=== PATIENT | female | born 1980 | race African-American/Black ===

== ENCOUNTER 2017-05-12 11:07 | Emergency (ER) | payer SELFPAY ==
--- NOTE | 2017-05-12 12:49 | ER Document Report ---
ED Medical Screen (RME) - General Chief Complaint: Fainting Stated Complaint: BACK PAIN Time Seen by Provider: 05/12/17 12:41 Mode of Arrival: Ambulatory Information source: Patient, [facility] Records TRAVEL OUTSIDE OF THE [place] IN LAST 30 DAYS: No - HPI Onset: Just prior to arrival Onset/Duration: Sudden Quality of pain: Dull Associated Symptoms: None Exacerbated by: Denies Relieved by: Denies Similar symptoms previously: No Recently seen / treated by doctor: No Notes: 05/12/17 12:47 Patient is a healthy 37-year-old female with no medical problems. Patient was standing at work today when she suddenly had a syncopal episode. Patient denies any injury from the syncopal episode. Patient is complaining of mild headache and low back pain. Patient states the low back pain preceded the syncope. The headache is been present since the syncope. No chest pain or shortness of breath. No recent illness. No nausea or vomiting. Patient does believe that she has a UTI. No fevers or chills. - Related Data Smoking: Non-smoker Allergies/Adverse Reactions: No Known Allergies Allergy (Verified 05/12/17 11:25) Past Medical History - General Information source: Patient, [facility] Records - Social History Frequency of alcohol use: None Drug Abuse: None Renal/ Medical History: Denies: Hx Peritoneal Dialysis Past Surgical History: Reports: Hx Section - x3, Hx Tubal Ligation - Immunizations Hx Diphtheria, Pertussis, Tetanus Vaccination: Yes Review of Systems - Review of Systems Constitutional: Other - Syncope Neurological/Psychological: Headaches -: Yes All other systems reviewed and negative Physical Exam - Vital signs Vitals: Temp Pulse Resp BP Pulse Ox 99.9 F 97 24 H 126/78 H 100 05/12/17 11:24 05/12/17 11:24 05/12/17 11:24 05/12/17 11:24 05/12/17 11:24 Interpretation: Normal - General General appearance: Appears well, Alert - HEENT Head: Normocephalic, Atraumatic Eyes: Normal Pupils: PERRL - Respiratory Respiratory status: No respiratory distress Chest status: Nontender Breath sounds: Normal Chest palpation: Normal - Cardiovascular Rhythm: Regular Heart sounds: Normal auscultation Murmur: No - Abdominal Inspection: Normal Distension: No distension Bowel sounds: Normal Tenderness: Nontender Organomegaly: No organomegaly - Back Back: Normal, Nontender - Extremities General upper extremity: Normal inspection, Nontender, Normal color, Normal ROM , Normal temperature General lower extremity: Normal inspection, Nontender, Normal color, Normal ROM , Normal temperature, Normal weight bearing. No: Nichole's sign - Neurological Neuro grossly intact: Yes Cognition: Normal Orientation: AAOx4 [place] Coma Scale Eye Opening: Spontaneous [place] Coma Scale Verbal: Oriented [place] Coma Scale Motor: Obeys Commands Don Coma Scale Total: 15 Speech: Normal Motor strength normal: LUE, RUE, LLE, RLE Sensory: Normal - Psychological Associated symptoms: Normal affect, Normal mood - Skin Skin Temperature: Warm Skin Moisture: Dry Skin Color: Normal Course - Re-evaluation Re-evalutation: 05/12/17 13:39 Emergency Department workup unremarkable with exception of the urine which demonstrates a UTI. Will place patient on antibiotics for this. Discussed need for primary care follow-up. - Vital Signs Vital signs: Temp Pulse Resp BP Pulse Ox 99.9 F 97 24 H 126/78 H 100 05/12/17 11:24 05/12/17 11:24 05/12/17 11:24 05/12/17 11:24 05/12/17 11:24 - Laboratory Result Diagrams: 05/12/17 12:55 05/12/17 12:55 Laboratory results interpreted by me: 05/12/17 05/12/17 05/12/17 12:55 12:55 12:55 RDW 15.6 H Plt Count 148 L Sodium 135.4 L Urine Blood SMALL H Urine Nitrite POSITIVE H Ur Leukocyte Esterase TRACE H - Diagnostic Test Radiology reviewed: Reports reviewed Radiology results interpreted by me: 05/12/17 13:39 CT head negative per radiologist. Chest x-ray negative per radiologist. Doctor's Discharge - Discharge Clinical Impression: UTI (urinary tract infection) Condition: Good Disposition: HOME, SELF-CARE Instructions: Urinary Tract Infection ([facility]) Additional Instructions: Increase fluids. Follow-up with your primary care doctor. Return to the emergency department if worse or for any other problems. Prescriptions: Sulfamethoxazole/Trimethoprim [Bactrim Ds Tablet] 1 each PO BID #14 tablet
[2017-05-12 13:19] LABS: APPEARANCE,URINE SLIGHTLY-CLOUDY; BILIRUBIN,URINE NEGATIVE (NEGATIVE); GLUCOSE, URINE NEGATIVE (NEGATIVE); KETONES,URINE NEGATIVE (NEGATIVE); LEUKOCYTE ESTERASE,URINE TRACE (NEGATIVE); NITRITE,URINE POSITIVE (NEGATIVE); PROTEIN,URINE NEGATIVE (NEGATIVE); URINE SPECIFIC GRAVITY 1.005; UROBILINOGEN,URINE NEGATIVE mg/dL (<2.0)
[2017-05-12 13:20] LABS: HEMATOCRIT 37.9 % (36.0-47.0); HEMOGLOBIN 12.5 g/dL (12.0-15.5); HGB HCT DIFFERENCE -0.4; MEAN CORPUSCULAR HEMOGLOBIN 29.8 pg (27.0-33.4); MEAN CORPUSCULAR HGB CONC 33.1 g/dL (32.0-36.0); MEAN CORPUSCULAR VOLUME 90 fl (80-97); RED BLOOD COUNT 4.21 10^6/uL (3.72-5.28); RED CELL DISTRIBUTION WIDTH 15.6 % (11.5-14.0); WHITE BLOOD COUNT 4.7 10^3/uL (4.0-10.5)
[2017-05-12 13:23] LABS: ALANINE AMINOTRANSFERASE 33 U/L (9-52); ALBUMIN 4.6 g/dL (3.5-5.0); ALKALINE PHOSPHATASE 69 U/L (38-126); ANION GAP 9 (5-19); ASPARTATE AMINO TRANSFERASE 22 U/L (14-36); BILIRUBIN,DIRECT 0.4 mg/dL (0.0-0.4); BILIRUBIN,TOTAL 0.7 mg/dL (0.2-1.3); BLOOD UREA NITROGEN 10 mg/dL (7-20); CALCIUM 9.6 mg/dL (8.4-10.2); CARBON DIOXIDE 23 mmol/L (22-30); CHLORIDE 103 mmol/L (98-107); CREATININE RESULT 0.73 mg/dL (0.52-1.25); GLUCOSE 87 mg/dL (75-110); SODIUM 135.4 mmol/L (137-145); TOTAL PROTEIN 7.9 g/dL (6.3-8.2)
--- NOTE | 2017-05-12 13:31 | RADIOLOGY REPORT (SQ) ---
EXAM DESCRIPTION: CT HEAD WITHOUT COMPLETED DATE/TIME: 05/12/2017 1:23 pm REASON FOR STUDY: syncope, headache COMPARISON: None. TECHNIQUE: Axial images acquired through the brain without intravenous contrast. Images reviewed wi th bone, brain and subdural windows. Images stored on PACS. All CT scanners at this facility use dose modulation, iterative reconstruction, and/or weight based d osing when appropriate to reduce radiation dose to as low as reasonably achievable ([facility]). [facility]: Dose Right [facility]: CareDose [facility]: Dose Right [facility]: Teradose 4D [facility]: [employer] RADIATION DOSE: Up-to-date CT equipment and radiation dose reduction techniques were employed. CTDIv ol: 64.6 mGy. DLP: 1163 mGy-cm. mGy. LIMITATIONS: None. FINDINGS: VENTRICLES: Normal size and contour. CEREBRUM: No masses. No hemorrhage. No midline shift. Normal fontana/white matter differentiation. N o evidence for acute infarction. CEREBELLUM: No masses. No hemorrhage. No alteration of density. No evidence for acute infarction. EXTRAAXIAL SPACES: No fluid collections. No masses. ORBITS AND GLOBE: No intra- or extraconal masses. Normal contour of globe without masses. CALVARIUM: No fracture. PARANASAL SINUSES: No fluid or mucosal thickening. SOFT TISSUES: No mass or hematoma. OTHER: No other significant finding. IMPRESSION: NORMAL BRAIN CT WITHOUT CONTRAST. TECHNICAL DOCUMENTATION: JOB ID: [id number] Quality ID # [id number]: Final reports with documentation of one or more dose reduction techniques (e.g., Au tomated exposure control, adjustment of the mA and/or kV according to patient size, use of iterative reconstruction technique) 2010 [employer]- All Rights Reserved
--- NOTE | 2017-05-12 13:34 | RADIOLOGY REPORT (SQ) ---
EXAM DESCRIPTION: CHEST SINGLE VIEW COMPLETED DATE/TIME: 05/12/2017 1:23 pm REASON FOR STUDY: syncope COMPARISON: 02/19/2014 EXAM PARAMETERS: NUMBER OF VIEWS: One view. TECHNIQUE: Single frontal radiographic view of the chest acquired. RADIATION DOSE: NA LIMITATIONS: None. FINDINGS: LUNGS AND PLEURA: No opacities, masses or pneumothorax. No pleural effusion. MEDIASTINUM AND HILAR STRUCTURES: No masses. Contour normal. HEART AND VASCULAR STRUCTURES: Heart normal in size. Normal vasculature. BONES: No acute findings. HARDWARE: None in the chest. OTHER: No other significant finding. IMPRESSION: NO ACUTE RADIOGRAPHIC FINDING IN THE CHEST. TECHNICAL DOCUMENTATION: JOB ID: [id number]
[2017-05-12] MEDS ORDERED: SULFAMETHOXAZOLE/TRIMETHOPRIM 800-160 MG TABLET PO ONE (13:39)
[2017-05-12 13:46] LABS: ANISOCYTOSIS SLIGHT; BASOPHILS % (MANUAL) 0 % (0-2); EOSINOPHILS % (MANUAL) 2 % (0-6); HYPOCHROMASIA SLIGHT; LYMPHOCYTES % (MANUAL) 4 % (13-45); PLATELET CLUMPS PRESENT; TOTAL CELLS COUNTED 100; TOXIC GRANULATION SLIGHT; TOXIC VACUOLATION PRESENT
[2017-05-12 13:48] VITALS: BP 117/73
--- NOTE | 2017-05-12 19:50 | EKG REPORT ---
SEVERITY:- BORDERLINE ECG - SINUS RHYTHM PROBABLE LEFT ATRIAL ABNORMALITY ST ELEV, PROBABLE NORMAL EARLY REPOL PATTERN : Confirmed by: Rafi Quiroz MD 12-May-2017 19:49:29
== END 2017-05-12 13:44 | disposition home or self-care (01) ==
LOC: ER 11:07
DX: N39.0 Urinary tract infection, site not specified (principal); R55 Syncope and collapse; R51 Headache; M54.5 Low back pain
CPT/HCPCS: 36415; 70450; 71010; 80053; 81001; 81025; 84484; 85025; 93005; 93010; 99284

== ENCOUNTER 2018-04-12 08:26 | Emergency (ER) | payer SELFPAY ==
[2018-04-12] MEDS ORDERED: BUPIVACAINE HCL 0.5%-EPI 1:200000 INJ/PF 30 ML VIAL INJ ONE (09:28)
--- NOTE | 2018-04-12 09:32 | ER Document Report ---
ED Oral Problem - General Chief Complaint: Toothache Stated Complaint: RIGHT SIDE OF FACE PAIN/SWELLING Time Seen by Provider: 04/12/18 08:58 Mode of Arrival: Ambulatory Information source: Patient Notes: Patient is a 38-year-old female who presents to the ER today for left lower tooth pain with some swelling that started yesterday. Patient denies any fevers or chills, she does not have a dentist follow-up with, she denies any discharge from the area. TRAVEL OUTSIDE OF THE [place] IN LAST 30 DAYS: No - Related Data Allergies/Adverse Reactions: No Known Allergies Allergy (Verified 04/12/18 08:27) Past Medical History - General Information source: Patient - Social History Smoking Status: Current Every Day Smoker Chew tobacco use (# tins/day): No Frequency of alcohol use: None Drug Abuse: None Family History: None, Reviewed & Not Pertinent Patient has suicidal ideation: No Patient has homicidal ideation: No Renal/ Medical History: Denies: Hx Peritoneal Dialysis Past Surgical History: Reports: Hx Section - x3, Hx Tubal Ligation - Immunizations Hx Diphtheria, Pertussis, Tetanus Vaccination: Yes Review of Systems - Review of Systems Constitutional: No symptoms reported EENT: See HPI Cardiovascular: No symptoms reported Respiratory: No symptoms reported Gastrointestinal: No symptoms reported Genitourinary: No symptoms reported Female Genitourinary: No symptoms reported Musculoskeletal: No symptoms reported Skin: No symptoms reported Hematologic/Lymphatic: No symptoms reported Neurological/Psychological: No symptoms reported Physical Exam - Vital signs Vitals: Temp Pulse Resp BP Pulse Ox 98.5 F 92 14 138/80 H 100 04/12/18 08:31 04/12/18 08:31 04/12/18 08:31 04/12/18 08:31 04/12/18 08:31 - Notes Notes: PHYSICAL EXAMINATION: GENERAL: Rocking back and forth in pain, but in no acute distress. HEAD: Atraumatic, normocephalic. EYES: Pupils equal round and reactive to light, extraocular movements intact, sclera anicteric, conjunctiva are normal. ENT: ear canals without erythema or foreign body, TMs pearly vee with good bony landmarks, nares patent, oropharynx clear without exudates. Moist mucous membranes. Tender to lower gumline around tooth #19, edema noted to the buccal space around this area and to the gumline, however no fluctuance or induration appreciated, no drainage NECK: Normal range of motion, supple without lymphadenopathy LUNGS: CTAB and equal. No wheezes rales or rhonchi. HEART: Regular rate and rhythm without murmurs EXTREMITIES: Normal range of motion, no pitting edema. No cyanosis. NEUROLOGICAL: Cranial nerves grossly intact. Normal sensory/motor exams. PSYCH: Normal mood, normal affect. SKIN: Warm, Dry, normal turgor, no rashes or lesions noted Course - Re-evaluation Re-evalutation: 04/12/18 10:41 Marcaine was utilized to perform a dental block to the area. Patient will be placed on amoxicillin. I did give for the [facility] dental information. - Vital Signs Vital signs: Temp Pulse Resp BP Pulse Ox 98.4 F 79 18 137/71 H 100 04/12/18 10:25 04/12/18 10:25 04/12/18 10:25 04/12/18 10:25 04/12/18 10:25 Discharge - Discharge Clinical Impression: Dental infection Condition: Stable Disposition: HOME, SELF-CARE Additional Instructions: Return immediately for any new or worsening symptoms. Follow up with dentist, call tomorrow to make followup appointment. Prescriptions: Amoxicillin 500 mg PO TID #30 capsule Hydrocodone/Acetaminophen [Fountain 5-325 mg Tablet] 1 tab PO Q4 PRN #15 tablet PRN Reason: Ibuprofen [Motrin 800 mg Tablet] 800 mg PO Q8H PRN #30 tab PRN Reason: Referrals: [facility] [Provider Group] - Follow up as needed
[2018-04-12 10:41] VITALS: BP 137/71
== END 2018-04-12 10:30 | disposition home or self-care (01) ==
LOC: ER 08:26
DX: K04.7 Periapical abscess without sinus (principal); F17.200 Nicotine dependence, unspecified, uncomplicated; Z98.51 Tubal ligation status
CPT/HCPCS: 99282; J3490

== ENCOUNTER 2018-08-03 02:38 | Emergency (ER) | payer SELFPAY ==
[2018-08-03] MEDS ORDERED: BENZONATATE 100 MG CAPSULE PO ONE (03:09)
--- NOTE | 2018-08-03 03:10 | ER Document Report ---
ED Respiratory Problem - General Chief Complaint: Breathing Difficulty Stated Complaint: DIZZINESS Time Seen by Provider: 08/03/18 03:04 Notes: Patient is a 38-year-old female that comes to the emergency department for chief complaint of cough and shortness of breath. She states that she keeps having episodes of coughing that making her feel out of breath. She states that if she lies flat this is worse or she takes a deep breath. She states she has coughed up some white sputum but also coughed up a little bit of blood earlier today causing her to be concerned and come to the emergency department. She denies current shortness of breath, denies fever, denies chest pain. She denies any daily medications or medical history. She smokes. She has had a tubal ligation. TRAVEL OUTSIDE OF THE [place] IN LAST 30 DAYS: No - Related Data Allergies/Adverse Reactions: No Known Allergies Allergy (Verified 04/12/18 08:27) Past Medical History - General Information source: Patient - Social History Smoking Status: Current Every Day Smoker Smoking Education Provided: Yes - <3 min Drug Abuse: None Lives with: Family Family History: None, Reviewed & Not Pertinent - Medical History Medical History: Negative Renal/ Medical History: Denies: Hx Peritoneal Dialysis Past Surgical History: Reports: Hx Section - x3, Hx Tubal Ligation - Immunizations Hx Diphtheria, Pertussis, Tetanus Vaccination: Yes Review of Systems - Review of Systems Constitutional: No symptoms reported EENT: No symptoms reported Cardiovascular: No symptoms reported Respiratory: See HPI Gastrointestinal: No symptoms reported Genitourinary: No symptoms reported Female Genitourinary: No symptoms reported Musculoskeletal: No symptoms reported Skin: No symptoms reported Hematologic/Lymphatic: No symptoms reported Neurological/Psychological: No symptoms reported Physical Exam - Vital signs Vitals: Temp Pulse Resp BP Pulse Ox 98.1 F 94 20 127/74 H 95 08/03/18 02:47 08/03/18 02:47 08/03/18 02:47 08/03/18 02:47 08/03/18 02:47 - Notes Notes: GENERAL: Alert, interacts well. No acute distress. HEAD: Normocephalic, atraumatic. EYES: Pupils equal, round, and reactive to light. Extraocular movements intact. ENT: Oral mucosa moist, tongue midline. Unremarkable oral pharyngeal exam. NECK: Full range of motion. Supple. Trachea midline. LUNGS: Clear to auscultation bilaterally except for a few coarse breath sounds, no wheezes, rales, or rhonchi. No respiratory distress. Occasional nonproductive coughing episodes. HEART: Regular rate and rhythm. No murmur ABDOMEN: Soft, non-tender. Non-distended. Bowel sounds present in all 4 quadrants. EXTREMITIES: Moves all 4 extremities spontaneously. No edema, normal radial and dorsalis pedis pulses bilaterally. No cyanosis. BACK: no cervical, thoracic, lumbar midline tenderness. No saddle anesthesia, normal distal neurovascular exam. NEUROLOGICAL: Alert and oriented x3. Normal speech. [cranial nerves II through XII grossly intact]. PSYCH: Normal affect, normal mood. SKIN: Warm, dry, normal turgor. No rashes or lesions noted. Course - Re-evaluation Re-evalutation: Chest x-ray showing peribronchial interstitial opacities which could be either viral bronchitis or developing pneumonia. Patient has nonproductive cough on my exam, reports productive cough at home, no fever, no hypoxia, no signs of distress. Clear lung sounds except for a few coarse breath sounds. No tachypnea or signs of distress. Discussed results with patient. After discussion decision was made to place patient on short course of prednisone for bronchitis along with short course of azithromycin for possible pneumonia. Provided with work release. Discussed follow-up and return precautions in detail. Discussed smoking cessation. Patient states understanding and agreement. - Vital Signs Vital signs: Temp Pulse Resp BP Pulse Ox 98.1 F 82 18 122/70 98 08/03/18 02:47 08/03/18 06:04 08/03/18 06:04 08/03/18 06:04 08/03/18 06:04 Discharge - Discharge Clinical Impression: Productive cough Condition: Stable Disposition: HOME, SELF-CARE Additional Instructions: Your evaluation and chest x-ray are consistent with bronchitis and possibly early developing pneumonia. Take prescriptions to completion, take Tessalon if needed for cough, drink plenty of fluids and rest. Follow-up with primary care. Stop smoking. Return if you worsen including difficulty breathing, spiking fever, or any other concerning symptoms. Prescriptions: Benzonatate [Tessalon Perles 100 mg Capsule] 100 mg PO Q8HP PRN #20 capsule PRN Reason: Azithromycin [Zithromax 250 mg Tablet] 250 mg PO ASDIR PRN #4 tablet PRN Reason: Prednisone 40 mg PO DAILY #10 tablet Forms: Return to Work
--- NOTE | 2018-08-03 05:30 | RADIOLOGY REPORT (SQ) ---
EXAM DESCRIPTION: XR CHEST 2 VIEWS COMPLETED DATE/TME: 08/03/2018 00:00 CLINICAL HISTORY: Trouble breathing, cough COMPARISON: 05/12/2017 FINDINGS: Frontal and lateral views of the chest. The cardiomediastinal silhouette has normal size and contour. Bilateral peribronchial interstitial opacities. No pneumothorax or pleural effusion. No displaced rib fractures identified. Upper abdominal soft tissues are unremarkable. IMPRESSION: 1. Bilateral peribronchial interstitial opacities. These findings could be seen with viral bronchitis, interstitial/bronchopneumonia, or reactive airways disease.
[2018-08-03] MEDS ORDERED: PREDNISONE 20 MG TABLET PO ONE (05:33)
[2018-08-03] MEDS ORDERED: AZITHROMYCIN 250 MG TABLET PO ONE (05:33)
[2018-08-03 06:07] VITALS: BP 122/70
== END 2018-08-03 06:04 | disposition home or self-care (01) ==
LOC: ER 02:38
DX: R04.2 Hemoptysis (principal); R09.89 Other specified symptoms and signs involving the circulatory and respiratory systems; F17.200 Nicotine dependence, unspecified, uncomplicated
CPT/HCPCS: 99284; 71046; J7512

== ENCOUNTER 2019-04-28 15:20 | Emergency (ER) | payer SELFPAY ==
[2019-04-28] MEDS ORDERED: NORMAL SALINE 1000 ML 1,000 ML IV ONE (15:44)
--- NOTE | 2019-04-28 15:46 | ER Document Report ---
ED Medical Screen (RME) - General Chief Complaint: Back Pain Stated Complaint: FLANK PAIN Time Seen by Provider: 04/28/19 15:44 Mode of Arrival: Ambulatory Information source: Patient Notes: 39-year-old female presented to ED for complaint of pain in her back for about 1-1/2 weeks. She states it is worse when she tries to get up and down. She states her last menstrual period was April 15 of this year she has had a bilateral tubal ligation. She states she is been having blood in her stool intermittently for about the last month. Patient is alert oriented respirations regular and unlabored speaking in full sentences walks with a even steady gait. 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 I have greeted and performed a rapid initial assessment of this patient. A comprehensive ED assessment and evaluation of the patient, analysis of test results and completion of medical decision making process will be conducted by an additional ED providers. Dictation of this chart was performed using voice recognition software; therefore, there may be some unintended grammatical errors. TRAVEL OUTSIDE OF THE [place] IN LAST 30 DAYS: No - Related Data Allergies/Adverse Reactions: No Known Allergies Allergy (Verified 04/28/19 15:24) Past Medical History - Social History Chew tobacco use (# tins/day): No Frequency of alcohol use: None Drug Abuse: None Renal/ Medical History: Denies: Hx Peritoneal Dialysis Past Surgical History: Reports: Hx Section - x3, Hx Tubal Ligation - Immunizations Hx Diphtheria, Pertussis, Tetanus Vaccination: Yes Physical Exam - Vital signs Vitals: Temp Pulse Resp BP Pulse Ox 98.6 F 118 H 16 114/64 92 04/28/19 15:25 04/28/19 15:25 04/28/19 15:25 04/28/19 15:25 04/28/19 15:25 Course - Vital Signs Vital signs: Temp Pulse Resp BP Pulse Ox 98.6 F 108 H 16 114/64 100 04/28/19 15:25 04/28/19 15:42 04/28/19 15:25 04/28/19 15:25 04/28/19 15:42
[2019-04-28 16:28] LABS: ABSOLUTE BASOPHILS # (AUTO) 0.1 10^3/uL (0.0-0.2); ABSOLUTE EOSINOPHILS # (AUTO) 0.2 10^3/uL (0.0-0.6); ABSOLUTE LYMPHOCYTES (AUTO) 1.8 10^3/uL (0.5-4.7); ABSOLUTE MONOCYTES (AUTO) 0.5 10^3/uL (0.1-1.4); BASOPHILS % (AUTO) 1.3 % (0-2); EOSINOPHILS % (AUTO) 2.8 % (0-6); HEMOGLOBIN 10.6 g/dL (12.0-15.5); LYMPHOCYTES % (AUTO) 20.5 % (13-45); MEAN CORPUSCULAR HEMOGLOBIN 27.5 pg (27.0-33.4); MEAN CORPUSCULAR HGB CONC 33.1 g/dL (32.0-36.0); MEAN CORPUSCULAR VOLUME 83 fl (80-97); MONOCYTES % (AUTO) 5.3 % (3-13); PLATELET COUNT 217 10^3/uL (150-450); RED BLOOD COUNT 3.84 10^6/uL (3.72-5.28); RED CELL DISTRIBUTION WIDTH 18.6 % (11.5-14.0); SEGMENTED NEUTROPHILS % (AUTO) 70.1 % (42-78); TOTAL CELLS COUNTED % (AUTO) 100 %; WHITE BLOOD COUNT 8.6 10^3/uL (4.0-10.5)
--- NOTE | 2019-04-28 16:36 | RADIOLOGY REPORT (SQ) ---
EXAM DESCRIPTION: L SPINE WHOLE COMPLETED DATE/TIME: 04/28/2019 4:27 pm REASON FOR STUDY: low back pain COMPARISON: None. NUMBER OF VIEWS: Five views including obliques. TECHNIQUE: AP, lateral, oblique, and sacral radiographic images acquired of the lumbar spine. LIMITATIONS: None. FINDINGS: MINERALIZATION: Normal. SEGMENTATION: Normal. No transitional anatomy. ALIGNMENT: Normal. VERTEBRAE: Maintained height. No fracture or worrisome bone lesion. DISCS: Preserved height. No significant osteophytes or end plate irregularity. POSTERIOR ELEMENTS: Pedicles and facets are intact. No pars defect or posterior arch defects. HARDWARE: None in the spine. PARASPINAL SOFT TISSUES: Normal. PELVIS: Intact as visualized. No fractures or worrisome bone lesions. SI joints intact. OTHER: No other significant finding. IMPRESSION: NORMAL 5 VIEW LUMBAR SPINE. TECHNICAL DOCUMENTATION: JOB ID: [id number] [employer]- All Rights Reserved Reading location - IP/workstation name: [email or web address]
[2019-04-28 16:37] LABS: APPEARANCE,URINE CLOUDY; BILIRUBIN,URINE NEGATIVE (NEGATIVE); COLOR,URINE AMBER; GLUCOSE, URINE NEGATIVE (NEGATIVE); KETONES,URINE NEGATIVE (NEGATIVE); LEUKOCYTE ESTERASE,URINE MODERATE (NEGATIVE); NITRITE,URINE POSITIVE (NEGATIVE); PROTEIN,URINE 30 mg/dL (NEGATIVE); URINE SPECIFIC GRAVITY 1.031
[2019-04-28 16:46] LABS: ALANINE AMINOTRANSFERASE 19 U/L (9-52); ALBUMIN 4.4 g/dL (3.5-5.0); ALKALINE PHOSPHATASE 63 U/L (38-126); ANION GAP 7 (5-19); ASPARTATE AMINO TRANSFERASE 28 U/L (14-36); BILIRUBIN,DIRECT 0.5 mg/dL (0.0-0.4); BILIRUBIN,TOTAL 0.7 mg/dL (0.2-1.3); BLOOD UREA NITROGEN 17 mg/dL (7-20); CALCIUM 9.5 mg/dL (8.4-10.2); CARBON DIOXIDE 25 mmol/L (22-30); CHLORIDE 106 mmol/L (98-107); GLUCOSE 86 mg/dL (75-110); POTASSIUM 4.7 mmol/L (3.6-5.0); SODIUM 138.2 mmol/L (137-145); TOTAL PROTEIN 7.3 g/dL (6.3-8.2)
[2019-04-28] MEDS ORDERED: KETOROLAC TROMETHAMINE INJ/PF 30 MG/1 ML SDV IV ONE (19:40)
[2019-04-28] MEDS ORDERED: CEFTRIAXONE INJ 1000 MG VIAL IV ONE (19:40)
[2019-04-28] MEDS ORDERED: SULFAMETHOXAZOLE/TRIMETHOPRIM 800-160 MG TABLET PO ONE (19:45)
--- NOTE | 2019-04-28 19:46 | ER Document Report ---
ED General - General Chief Complaint: Back Pain Stated Complaint: FLANK PAIN Time Seen by Provider: 04/28/19 15:44 Primary Care Provider: [facility] [Provider Group] - Follow up in 3-5 days Mode of Arrival: Ambulatory TRAVEL OUTSIDE OF THE [place] IN LAST 30 DAYS: No - HPI Notes: Patient is a 39-year-old female that presents to the emergency department for chief complaint of abdominal pain and back pain. Patient reports crampy abdominal pain in her suprapubic region and in her lower back. She states is been ongoing for about a week. She denies any associated nausea, vomiting or diarrhea. Patient does states she has had some bright red blood in her stool for the last month. She states that it is mostly on the toilet paper when she wipes. She does have an external hemorrhoid which she has had for 15 years. She denies feeling lightheaded, palpitations, short of breath or chest pain. Past Medical History: Negative Past Surgical History: x3 Social History: Occasional alcohol. Daily tobacco. Denies drug use. Family History: Reviewed and noncontributory for presenting illness Allergies: Reviewed, see documented allergy list. REVIEW OF SYSTEMS: CONSTITUTIONAL : No fever No chills No diaphoresis No recent illness EENT: No vision changes No congestion No sore throat CARDIOVASCULAR: No chest pain No palpitations RESPIRATORY: No shortness of breath No cough No difficulty breathing GASTROINTESTINAL: abdominal pain No nausea No vomiting No diarrhea GENITOURINARY: No dysuria No hematuria No difficulty urinating MUSCULOSKELETAL: back pain No leg pain No arm pain SKIN: No rashes No lesions LYMPHATIC: No swollen, enlarged glands. NEUROLOGICAL: No lightheadedness No headache No weakness No paresthesias PSYCHIATRIC: No anxiety No depression PHYSICAL EXAMINATION: Vital signs reviewed, nursing noted reviewed. GENERAL: Well-appearing, well-nourished and in no acute distress. HEAD: Atraumatic, normocephalic. EYES: Eyes appear normal, extraocular movements intact, sclera anicteric, conjunctiva are normal. ENT: nares patent, oropharynx clear without exudates. Moist mucous membranes. NECK: Normal range of motion, supple without lymphadenopathy LUNGS: Breath sounds clear to auscultation bilaterally and equal. No wheezes rales or rhonchi. HEART: Regular rate and rhythm without murmurs ABDOMEN: Soft, mild suprapubic tenderness, normoactive bowel sounds. No rebound, guarding, or rigidity. No masses appreciated. EXTREMITIES: Nontender, good range of motion, no pitting or edema. Back: No midline lumbar paraspinal or midline tenderness, normal range of motion NEUROLOGICAL: No focal neurological deficits. Moves all extremities spontaneo usly Motor and sensory grossly intact on exam. PSYCH: Normal mood, normal affect. SKIN: Warm, Dry, normal turgor, no rashes or lesions noted on exposed skin - Related Data Allergies/Adverse Reactions: No Known Allergies Allergy (Verified 04/28/19 15:24) Past Medical History - General Information source: Patient - Social History Smoking Status: Current Every Day Smoker Chew tobacco use (# tins/day): No Frequency of alcohol use: None Drug Abuse: None Family History: None, Reviewed & Not Pertinent Patient has suicidal ideation: No Patient has homicidal ideation: No Renal/ Medical History: Denies: Hx Peritoneal Dialysis Past Surgical History: Reports: Hx Section - x3, Hx Tubal Ligation - Immunizations Hx Diphtheria, Pertussis, Tetanus Vaccination: Yes Physical Exam - Vital signs Vitals: Temp Pulse Resp BP Pulse Ox 98.6 F 118 H 16 114/64 92 04/28/19 15:25 04/28/19 15:25 04/28/19 15:25 04/28/19 15:25 04/28/19 15:25 Course - Re-evaluation Re-evalutation: 04/28/19 19:50 Vitals reviewed. Nursing notes reviewed. Patient's lab work shows a mild anemia but is otherwise unremarkable. She has no elevated white count or signs of sepsis. She has normal renal function. She has no electrolyte derangement. She did have x-ray of her lumbar spine ordered in triage which shows no acute bony injury. Patient has no report of trauma or bony tenderness on my exam. Her urinalysis does show nitrate positive UTI which will be treated with Bactrim. Her pain does not radiate up into her flanks to suggest pyelonephritis. Patient was given Toradol for pain. She will be discharged home in stable condition. Laboratory 04/28/19 04/28/19 04/28/19 16:07 16:07 16:07 WBC 8.6 RBC 3.84 Hgb 10.6 L Hct 32.0 L MCV 83 MCH 27.5 MCHC 33.1 RDW 18.6 H Plt Count 217 Seg Neutrophils % 70.1 Lymphocytes % 20.5 Monocytes % 5.3 Eosinophils % 2.8 Basophils % 1.3 Absolute Neutrophils 6.0 Absolute Lymphocytes 1.8 Absolute Monocytes 0.5 Absolute Eosinophils 0.2 Absolute Basophils 0.1 Sodium 138.2 Potassium 4.7 Chloride 106 Carbon Dioxide 25 Anion Gap 7 BUN 17 Creatinine 0.85 Est GFR ( Amer) > 60 Est GFR (Non-Af Amer) > 60 Glucose 86 Calcium 9.5 Total Bilirubin 0.7 Direct Bilirubin 0.5 H Neonat Total Bilirubin Not Reportable Neonat Direct Bilirubin Not Reportable Neonat Indirect Bili Not Reportable AST 28 ALT 19 Alkaline Phosphatase 63 Total Protein 7.3 Albumin 4.4 Serum HCG, Qual NEGATIVE Urine Color Urine Appearance Urine pH Ur Specific [place] Urine Protein Urine Glucose (UA) Urine Ketones Urine Blood Urine Nitrite Urine Bilirubin Urine Urobilinogen Ur Leukocyte Esterase Urine WBC (Auto) Urine RBC (Auto) Urine Bacteria (Auto) Squamous Epi Cells Auto Urine Mucus (Auto) Urine Ascorbic Acid 04/28/19 16:07 WBC RBC Hgb Hct MCV MCH MCHC RDW Plt Count Seg Neutrophils % Lymphocytes % Monocytes % Eosinophils % Basophils % Absolute Neutrophils Absolute Lymphocytes Absolute Monocytes Absolute Eosinophils Absolute Basophils Sodium Potassium Chloride Carbon Dioxide Anion Gap BUN Creatinine Est GFR ( Amer) Est GFR (Non-Af Amer) Glucose Calcium Total Bilirubin Direct Bilirubin Neonat Total Bilirubin Neonat Direct Bilirubin Neonat Indirect Bili AST ALT Alkaline Phosphatase Total Protein Albumin Serum HCG, Qual Urine Color [place] Urine Appearance CLOUDY Urine pH 5.0 Ur Specific [place] 1.031 Urine Protein 30 H Urine Glucose (UA) NEGATIVE Urine Ketones NEGATIVE Urine Blood SMALL H Urine Nitrite POSITIVE H Urine Bilirubin NEGATIVE Urine Urobilinogen 2.0 H Ur Leukocyte Esterase MODERATE H Urine WBC (Auto) 45 Urine RBC (Auto) 6 Urine Bacteria (Auto) 3+ Squamous Epi Cells Auto 24 Urine Mucus (Auto) FEW Urine Ascorbic Acid NEGATIVE Lumbar Spine X-Ray 04/28/19 15:44 IMPRESSION: NORMAL 5 VIEW LUMBAR SPINE. - Vital Signs Vital signs: Temp Pulse Resp BP Pulse Ox 98.3 F 79 18 110/65 98 04/28/19 20:10 04/28/19 20:10 04/28/19 20:10 04/28/19 20:10 04/28/19 20:10 - Laboratory Result Diagrams: 04/28/19 16:07 04/28/19 16:07 Laboratory results interpreted by me: 04/28/19 04/28/19 04/28/19 16:07 16:07 16:07 Hgb 10.6 L Hct 32.0 L RDW 18.6 H Direct Bilirubin 0.5 H Urine Protein 30 H Urine Blood SMALL H Urine Nitrite POSITIVE H Urine Urobilinogen 2.0 H Ur Leukocyte Esterase MODERATE H Discharge - Discharge Clinical Impression: UTI (urinary tract infection) Qualifiers: Urinary tract infection type: site unspecified Hematuria presence: with hematuria Qualified Code(s): N39.0 - Urinary tract infection, site not specified Condition: Stable Disposition: HOME, SELF-CARE Instructions: Urinary Tract Infection ([facility]) Additional Instructions: Please return to the emergency department if you have any worsening, or concern of your symptoms. Please return to the emergency department if you develop chest pain, difficulty breathing, severe abdominal pain, or ongoing vomiting. Please follow-up with your primary care physician in 2-3 days and any other recommended physicians. If prescribed, take all medications as directed. If you have any questions or concerns do not hesitate to return the emergency department for evaluation. Prescriptions: Sulfamethoxazole/Trimethoprim [Bactrim Ds Tablet] 1 each PO BID #14 tablet Sulfamethoxazole/Trimethoprim [Bactrim Ds Tablet] 1 each PO BID #14 tablet Referrals: [facility] [Provider Group] - Follow up in 3-5 days
[2019-04-28 20:17] VITALS: BP 110/65
== END 2019-04-28 20:11 | disposition home or self-care (01) ==
LOC: ER 15:20
DX: N39.0 Urinary tract infection, site not specified (principal); M54.9 Dorsalgia, unspecified; D64.9 Anemia, unspecified; Z98.51 Tubal ligation status
CPT/HCPCS: 99284; 96361; 96374; 36415; 84703; 85025; 80053; 81001; 72110; J1885; J7030

== ENCOUNTER 2020-03-04 23:20 | Observation (INO) | payer SELFPAY ==
[2020-03-04] MEDS ORDERED: IPRATROPIUM/ALBUTEROL 0.5-2.5 MG/3 ML AMPUL NEB ONE (23:22)
[2020-03-04] MEDS ORDERED: PANTOPRAZOLE SODIUM 40 MG VIAL IV ONE (23:22)
[2020-03-04] MEDS ORDERED: METHYLPREDNISOLONE INJ 125 MG/2 ML SDV IV ONE (23:23)
[2020-03-04] MEDS ORDERED: ONDANSETRON HCL INJ/PF 4 MG/2 ML SDV IV ONE (23:26)
--- NOTE | 2020-03-04 23:37 | ER Document Report ---
ED Medical Screen (RME) - General Chief Complaint: Shortness Of Breath Stated Complaint: SHORTNESS OF BREATH Time Seen by Provider: 03/04/20 23:21 Notes: Patient is a 40-year-old female who presents emergency department with a chief complaint of shortness of breath and vomiting blood. Patient states that she started to feel short of breath earlier today. Patient started vomiting blood this afternoon. Patient denies blood thinner use. States that she drinks alcohol occasionally. Exam: Expiratory wheezes noted throughout lung miranda. Patient actively vomiting nelida blood. I have greeted and performed a rapid initial assessment of this patient. A comprehensive ED assessment and evaluation of the patient, analysis of test results and completion of medical decision making process will be conducted by an additional ED providers. TRAVEL OUTSIDE OF THE [place] IN LAST 30 DAYS: No - Related Data Allergies/Adverse Reactions: No Known Allergies Allergy (Verified 04/28/19 15:24) Past Medical History Renal/ Medical History: Denies: Hx Peritoneal Dialysis Past Surgical History: Reports: Hx Section - x3, Hx Tubal Ligation - Immunizations Hx Diphtheria, Pertussis, Tetanus Vaccination: Yes
[2020-03-04] MEDS: MAGNESIUM SULFATE/D5W 1 GM/100 ML RTUPB IV SCH (23:51)
[2020-03-04 23:52] LABS: ABSOLUTE BASOPHILS # (AUTO) 0.1 10^3/uL (0.0-0.2); ABSOLUTE EOSINOPHILS # (AUTO) 0.3 10^3/uL (0.0-0.6); ABSOLUTE LYMPHOCYTES (AUTO) 2.4 10^3/uL (0.5-4.7); ABSOLUTE MONOCYTES (AUTO) 0.3 10^3/uL (0.1-1.4); ABSOLUTE NEUT (AUTO) 6.1 10^3/uL (1.7-8.2); EOSINOPHILS % (AUTO) 3.7 % (0-6); HEMATOCRIT 32.4 % (36.0-47.0); HEMOGLOBIN 10.7 g/dL (12.0-15.5); LYMPHOCYTES % (AUTO) 25.8 % (13-45); MEAN CORPUSCULAR HEMOGLOBIN 26.9 pg (27.0-33.4); MEAN CORPUSCULAR VOLUME 82 fl (80-97); MONOCYTES % (AUTO) 3.5 % (3-13); PLATELET COUNT 312 10^3/uL (150-450); RED BLOOD COUNT 3.97 10^6/uL (3.72-5.28); RED CELL DISTRIBUTION WIDTH 18.2 % (11.5-14.0); TOTAL CELLS COUNTED % (AUTO) 100 %; WHITE BLOOD COUNT 9.3 10^3/uL (4.0-10.5)
--- NOTE | 2020-03-05 00:07 | ER Document Report ---
ED General - General Chief Complaint: Shortness Of Breath Stated Complaint: SHORTNESS OF BREATH Time Seen by Provider: 03/04/20 23:21 Mode of Arrival: Ambulatory Information source: Patient Notes: This 40-year-old woman presents to the emergency department with a complaint of shortness of breath with associated wheezing and cough. She states she had been coughing so hard that she began to gag and vomit. She had an episode at home where she threw up some bright red blood/clot. The emergency department she was noted to be wheezing and coughing with cough productive of a bright red blood. Is not sure clear whether she was vomiting bright red blood or coughing it up. Denies chest pain or abdominal pain. She denies a history of hematemesis in the past. She is a smoker approximately 1/2 packs/day, she occasionally drinks, denies drug use and denies a history of asthma. States she had been feeling well until today when she began having shortness of breath with associated cough. TRAVEL OUTSIDE OF THE [place] IN LAST 30 DAYS: No - Related Data Allergies/Adverse Reactions: No Known Allergies Allergy (Verified 04/28/19 15:24) Past Medical History - Social History Smoking Status: Current Every Day Smoker Family History: None, Reviewed & Not Pertinent Patient has homicidal ideation: No Renal/ Medical History: Denies: Hx Peritoneal Dialysis Past Surgical History: Reports: Hx Section - x3, Hx Tubal Ligation - Immunizations Hx Diphtheria, Pertussis, Tetanus Vaccination: Yes Review of Systems - Review of Systems Notes: Constitutional: Negative for fever. HENT: Negative for sore throat. Eyes: Negative for visual changes. Cardiovascular: Negative for chest pain. Respiratory: + Shortness of breath, + cough. Gastrointestinal: + Vomiting, + hematemesis Genitourinary: Negative for dysuria. Musculoskeletal: Negative for back pain. Skin: Negative for rash. Neurological: Negative for headaches, weakness or numbness. 10 point ROS negative except as marked above and in HPI. Physical Exam - Vital signs Vitals: Temp 98.1 F 03/04/20 23:20 - Notes Notes: PHYSICAL EXAMINATION: Physical Exam: General: Well-nourished well-developed in no acute distress HEENT: NC/AT, pupils equal round and reactive to light, MM moist,nares clear, oropharynx clear, airway patent Neck: supple, no adenopathy, no masses. Good range of motion Lungs: clear, no wheezing, no rales no rhonchi CVS: Regular rate and rhythm no murmur gallop or rub Abdomen: Soft, active, nontender, no masses, no hepatosplenomegaly Ext: No edema, clubbing or cyanosis. Neuro: Alert and responsive, moving all 4 extremities on command, cranial nerves intact, no focal findings Skin: Intact no open lesions, no rash PSYCH: Normal mood, normal affect. Course - Re-evaluation Re-evalutation: 03/05/20 02:59 Patient was given IV fluids, Solu-Medrol, DuoNeb nebulizer treatments x3, magnesium sulfate IV, type and screen, Protonix IV, andLasix 40 mg IV. She has had significant improvement in her respiratory, she has had 2 further episodes of hematemesis. I discussed with the patient the need to come into the hospital for closer monitoring and further evaluation and treatment. Chest x-ray revealed a prominent cardiac silhouette and vascular congestion. I discussed th e patient with the hospitalist , he has requested COVID 19 testing. A rapid test for COVID is being requested, the patient will be admitted to the medical floor once the results have been obtained. - Vital Signs Vital signs: Temp Pulse Resp BP Pulse Ox 98.1 F 98 23 H 131/83 H 98 03/04/20 23:20 03/05/20 02:10 03/05/20 02:10 03/05/20 02:10 03/05/20 02:10 - Laboratory Result Diagrams: 03/04/20 23:33 03/04/20 23:33 Laboratory results interpreted by me: 03/04/20 03/04/20 03/04/20 23:33 23:33 23:33 Hgb 10.7 L Hct 32.4 L MCH 26.9 L RDW 18.2 H VBG HCO3 Sodium 136.7 L Chloride 108 H Carbon Dioxide 21 L Glucose 119 H NT-Pro-B Natriuret Pep 1090 H 03/05/20 01:32 Hgb Hct MCH RDW VBG HCO3 19.8 L Sodium Chloride Carbon Dioxide Glucose NT-Pro-B Natriuret Pep Critical Care Note - Critical Care Note Total time excluding time spent on procedures (mins): 60 - Critical care time spent obtaining history from patient or surrogate, discussions with consultants, development of treatment plan with patient or surrogate, evaluation of patient's response to treatment, examination of patient, ordering and performing treatments and interventions, ordering and review of laboratory studies, re-eval uation of patient's condition, ordering and review of radiographic studies and review of old charts Discharge - Discharge Clinical Impression: Bronchospasm, Cough, Cigarette smoker Hematemesis Qualifiers: Nausea presence: unspecified Qualified Code(s): K92.0 - Hematemesis Condition: Good Disposition: ADMITTED INPATIENT Admitting Provider: Caroline (Hospitalist) Unit Admitted: Medical Floor
[2020-03-05 00:09] LABS: ALBUMIN 4.1 g/dL (3.5-5.0); ALKALINE PHOSPHATASE 84 U/L (38-126); ANION GAP 8 (5-19); ASPARTATE AMINO TRANSFERASE 23 U/L (14-36); BILIRUBIN,TOTAL 0.4 mg/dL (0.2-1.3); BLOOD UREA NITROGEN 14 mg/dL (7-20); CALCIUM 8.8 mg/dL (8.4-10.2); CARBON DIOXIDE 21 mmol/L (22-30); CHLORIDE 108 mmol/L (98-107); GLUCOSE 119 mg/dL (75-110); POTASSIUM 4.2 mmol/L (3.6-5.0); TOTAL PROTEIN 7.2 g/dL (6.3-8.2)
--- NOTE | 2020-03-05 00:51 | RADIOLOGY REPORT (SQ) ---
CLINICAL INDICATION: shortness of breath. TECHNIQUE: A single portable AP view was obtained of the chest at 0011 hours. COMPARISON: August 03, 2018. FINDINGS: The cardiomediastinal silhouette is prominent but stable. The lungs demonstrate improved aeration. Residual bibasilar interstitial change.. No evidence of effusion or pneumothorax. The visualized bones are unremarkable. IMPRESSION: Interstitial changes bibasilar, improved aeration when compared to prior.
[2020-03-05] MEDS ORDERED: FUROSEMIDE INJ/PF 20 MG/2 ML SDV IV ONE (01:47)
[2020-03-05 01:48] LABS: VENOUS BLOOD BASE EXCESS -5.4 mmol/L; VENOUS BLOOD HCO3 19.8 mmol/L (20-32); VENOUS BLOOD PCO2 37.4 mmHg (35-63); VENOUS BLOOD PH 7.34 (7.30-7.42)
[2020-03-05] MEDS ORDERED: IPRATROPIUM/ALBUTEROL 0.5-2.5 MG/3 ML AMPUL NEB ONE (01:48)
[2020-03-05] MEDS ORDERED: LEVALBUTEROL HCL NEB 0.63 MG/3 ML AMPUL NEB PRN (03:25)
[2020-03-05] MEDS ORDERED: MAG HYDROX/AL HYDROX/SIMETH SUSP 30 ML UDCUP PO PRN (03:25)
[2020-03-05] MEDS ORDERED: MAGNESIUM HYDROXIDE SUSP 30 ML UDCUP PO PRN (03:25)
[2020-03-05] MEDS ORDERED: ONDANSETRON HCL INJ/PF 4 MG/2 ML SDV IV PRN (03:25)
[2020-03-05] MEDS ORDERED: MORPHINE SULFATE 10 MG/ML INJ IV PRN ×4 (03:29→08:30)
[2020-03-05] MEDS ORDERED: NICOTINE 21 MG/24 HR PATCH.TD24 TD PRN (03:29)
[2020-03-05] MEDS ORDERED: HYDRALAZINE HCL INJ/PF 20 MG/1 ML SDV IV PRN (03:29)
[2020-03-05] MEDS ORDERED: GUAIFENESIN SYRP 200 MG/10 ML UDC PO PRN (03:29)
[2020-03-05] MEDS ORDERED: LORAZEPAM INJ 2 MG/1 ML VIAL IV PRN (03:29)
[2020-03-05] MEDS ORDERED: ACETAMINOPHEN 325 MG TABLET PO PRN (03:29)
[2020-03-05] MEDS ORDERED: METHYLPREDNISOLONE INJ 125 MG/2 ML SDV ONE (03:53)
[2020-03-05] MEDS ORDERED: METHYLPREDNISOLONE INJ 125 MG/2 ML SDV IV ONE (04:00)
--- NOTE | 2020-03-05 06:36 | PDOC H&P ---
History of Present Illness Admission Date/PCP: 03/05/2020 02:57 Patient complains of: Dyspnea History of Present Illness: RONALDO CARL is a 40 year old female who presented the emergency room with acute dyspnea. She admits the sudden onset of moderate dyspnea with an associated paroxysmal cough and accompanied by wheezing on the afternoon of 03/04/2020. Her cough was severe enough to cause gagging which resulted in an emesis of a bright red blood clot. She admits subsequent small emeses of blood- tinged liquid. She denies other associated or accompanying signs and symptoms. She admits smoking 1-1/2 packs of cigarettes per day but insists that she felt well until the sudden onset of symptoms yesterday afternoon. She denies prior similar episodes. She has not identified any aggravating or ameliorating factors for her dyspnea or hematemesis. In the emergency room she was found to have a blood-tinged emesis and her hemoglobin was noted to be essentially unchanged from a result obtained in 2019. She was noted to have an elevated BNP of 1049 and a prominent cardiac silhouette on portable chest x-ray. She was subsequently admitted to observation status for further evaluation and treatment. Past Medical History Cardiac Medical History: Denies: Atrial Fibrillation, Coronary Artery Disease, DVT, Myocardial Infarction, Hyperlipidema, Hypertension, Pulmonary Embolism Pulmonary Medical History: Denies: Asthma, Chronic Obstructive Pulmonary Disease (COPD), Pneumonia EENT Medical History: Denies: Cataracts, Ears - Hearing aids Neurological Medical History: Denies: Migraine, Multiple Sclerosis, Seizures Endocrine Medical History: Denies: Diabetes Mellitus Type 1, Diabetes Mellitus Type 2, Hyperthyroidism, Hypothyroidism, Obesity Renal/ Medical History: Denies: Chronic Kidney Disease, Nephrolithiasis Malignancy Medical History: Reports: None GI Medical History: Denies: Cirrhosis, Crohn's Disease, Gastroesophageal Reflux Disease, Hepat itis, Peptic Ulcer Disease, Ulcerative Colitis Musculoskeltal Medical History: Denies: Arthritis, Gout Skin Medical History: Denies: Eczema, Psoriasis Psychiatric Medical History: Reports: Tobacco Dependency Denies: Alcohol Dependency, Substance Abuse Traumatic Medical History: Reports: None Hematology: Reports: Anemia Denies: Bleeding Tendencies Infectious Medical History: Reports: None Past Surgical History Past Surgical History: Reports: Section - x3, Tubal Ligation Social History Information Source: Patient Lives with: Family, Spouse/Significant other Smoking Status: Current Every Day Smoker Cigarettes Packs Per Day: 1.5 Electronic Cigarette use?: No Frequency of Alcohol Use: Occasional Hx Recreational Drug Use: No Drugs: None Hx Prescription Drug Abuse: No - Advance Directive Resuscitation Status: Full Code Surrogate healthcare decision maker:: Deng Callaway Family History Family History: CAD, DM, Hypertension, Malignancy Parental Family History Reviewed: Yes Children Family History Reviewed: No Sibling(s) Family History Reviewed.: Yes Medication/Allergy Home Medications: Amoxicillin 500 mg PO TID #30 capsule 04/12/18 Hydrocodone/Acetaminophen [Helvetia 5-325 mg Tablet] 1 tab PO Q4 PRN #15 tablet 04/12/18 Ibuprofen [Motrin 800 mg Tablet] 800 mg PO Q8H PRN #30 tab 04/12/18 Azithromycin [Zithromax 250 mg Tablet] 250 mg PO ASDIR PRN #4 tablet 08/03/18 Benzonatate [Tessalon Perles 100 mg Capsule] 100 mg PO Q8HP PRN #20 capsule 08/03/18 Prednisone 40 mg PO DAILY #10 tablet 08/03/18 Sulfamethoxazole/Trimethoprim [Bactrim Ds Tablet] 1 each PO BID #14 tablet 04/28/19 Sulfamethoxazole/Trimethoprim [Bactrim Ds Tablet] 1 each PO BID #14 tablet 04/28/19 Allergies/Adverse Reactions: No Known Allergies Allergy (Verified 04/28/19 15:24) Review of Systems Constitutional: ABSENT: chills, fever(s) Eyes: ABSENT: visual disturbances, other - I. Ears: ABSENT: hearing changes, other - Ear pain Nose, Mouth, and Throat: ABSENT: headache(s), sore throat Cardiovascular: ABSENT: chest pain Respiratory: PRESENT: as per HPI, cough - Paroxysmal, dyspnea, hemoptysis - vs. hematemesis Gastrointestinal: PRESENT: as per HPI, hematemesis - vs. hemoptysis, vomiting. ABSENT: abdominal pain, constipation, diarrhea, nausea Genitourinary: ABSENT: dysuria, hematuria Musculoskeletal: ABSENT: back pain, joint swelling, muscle weakness Integumentary: ABSENT: pruritus, rash Neurological: ABSENT: confusion, convulsions, focal weakness, memory loss, syncope Psychiatric: ABSENT: anxiety, depression Endocrine: ABSENT: cold intolerance, heat intolerance, polydipsia, polyphagia, polyuria Hematologic/Lymphatic: ABSENT: easy bleeding, easy bruising Allergic/Immunologic: ABSENT: seasonal rhinorrhea Physical Exam Vital Signs: Temp Pulse Resp BP Pulse Ox 98.1 F 98 23 H 131/83 H 98 03/04/20 23:20 03/05/20 02:10 03/05/20 02:10 03/05/20 02:10 03/05/20 02:10 Intake & Output 03/03/20 03/04/20 03/05/20 23:59 23:59 23:59 Intake Total 0 Balance 0 Weight 58.06 kg General appearance: PRESENT: no acute distress, cooperative Head exam: PRESENT: atraumatic, normocephalic Eye exam: PRESENT: conjunctiva pink. ABSENT: conjunctival injection, scleral icterus Ear exam: PRESENT: normal external ear exam. ABSENT: bleeding, drainage Mouth exam: PRESENT: dry mucosa, neck supple Neck exam: ABSENT: thyromegaly, tracheal deviation Respiratory exam: PRESENT: prolonged expiratory phas - Minimally prolonged expiratory phase in all miranda, symmetrical, wheezes - Mild expiratory wheezes in all miranda Cardiovascular exam: PRESENT: RRR. ABSENT: clicks, gallop, rubs Pulses: PRESENT: normal radial pulses, normal dorsalis pedis pul Vascular exam: PRESENT: normal capillary refill. ABSENT: pallor GI/Abdominal exam: PRESENT: normal bowel sounds, soft Rectal exam: PRESENT: deferred Extremities exam: ABSENT: joint swelling, pedal edema Musculoskeletal exam: ABSENT: deformity, dislocation Neurological exam: PRESENT: alert, oriented to person, oriented to place, oriented to time, oriented to situation, CN II-XII grossly intact. ABSENT: motor sensory deficit Psychiatric exam: PRESENT: appropriate affect, normal mood Skin exam: PRESENT: dry, intact, warm. ABSENT: jaundice, rash, urticaria Results Laboratory Results: 03/04/20 23:33 03/04/20 23:33 03/04/20 03/04/20 03/04/20 23:33 23:33 23:33 WBC 9.3 RBC 3.97 Hgb 10.7 L Hct 32.4 L MCV 82 MCH 26.9 L MCHC 33.0 RDW 18.2 H Plt Count 312 Seg Neutrophils % 66.0 VBG pH VBG pCO2 VBG HCO3 VBG Base Excess Sodium 136.7 L Potassium 4.2 Chloride 108 H Carbon Dioxide 21 L Anion Gap 8 BUN 14 Creatinine 0.81 Est GFR ( Amer) > 60 Glucose 119 H Calcium 8.8 Total Bilirubin 0.4 AST 23 Alkaline Phosphatase 84 Total Protein 7.2 Albumin 4.1 Blood Type O POSITIVE Antibody Screen NEGATIVE 03/05/20 01:32 WBC RBC Hgb Hct MCV MCH MCHC RDW Plt Count Seg Neutrophils % VBG pH 7.34 VBG pCO2 37.4 VBG HCO3 19.8 L VBG Base Excess -5.4 Sodium Potassium Chloride Carbon Dioxide Anion Gap BUN Creatinine Est GFR ( Amer) Glucose Calcium Total Bilirubin AST Alkaline Phosphatase Total Protein Albumin Blood Type Antibody Screen 03/04/20 23:33 NT-Pro-B Natriuret Pep 1090 H Impressions: Chest X-Ray 03/04/20 23:51 IMPRESSION: Interstitial changes bibasilar, improved aeration when compared to prior. Assessment and Plan - Diagnosis (1) Acute exacerbation of chronic obstructive pulmonary disease Is this a current diagnosis for this admission?: Yes (2) Chronic obstructive pulmonary disease suggested by initial evaluation Is this a current diagnosis for this admission?: Yes (3) Hematemesis Qualifiers: Nausea presence: unspecified Qualified Code(s): K92.0 - Hematemesis Is this a current diagnosis for this admission?: Yes (4) Chronic anemia Is this a current diagnosis for this admission?: Yes (5) Tobacco use disorder, severe, dependence Is this a current diagnosis for this admission?: Yes - Plan Summary Summary: Patient is admitted to medical floor where she received routine supportive and symptomatic cares. She will be treated with an aggressive pulmonary toilet utilizing Xopenex, Atrovent and Pulmicort delivered via nebulizer therapy. She will receive IV Solu-Medrol using a burst dose protocol. She will use morphine sulfate 2 to 4 mg IV every 2 hours as needed for pain. She will use Ativan 1 mg IV every 4 hours as needed anxiety or restlessness. Smoking cessation is advised and counseled briefly at the bedside. A nicotine replacement patch is available for the patient's use, if desired. She will be continued on a regular diet. CBCs, metabolic profiles, magnesium levels and additional radiographic studies will be obtained as appropriate. Gastroenterology consultation and Pulmonology consultation will be obtained as available. - Time Time Spent with patient: 15-24 minutes Smoking Cessation Education: 3 to 10 minutes Medications reviewed and adjusted accordingly: Yes Anticipated discharge: Home - Inpatient Certification Based on my medical assessment, after consideration of the patient's comorbidities, presenting symptoms, or acuity I expect that the services needed warrant INPATIENT care.: Yes I certify that my determination is in accordance with my understanding of Medicare's requirements for reasonable and necessary INPATIENT services [42 CFR 412.3e].: Yes Medical Necessity: Need Close Monitoring Due to Risk of Patient Decompensation, Need for Nebulizer Therapy and Monitoring of Response, Risk of Complication if Not Cared For in Hospital, Risk of Diagnosis Which Will Require Inpatient Eval/Care/Monitoring
[2020-03-05] MEDS ORDERED: PROMETHAZINE HCL INJ 25 MG/1 ML VIAL IV PRN (06:37)
[2020-03-05] MEDS: PANTOPRAZOLE SODIUM 40 MG VIAL IV SCH ×2 (10:07→22:08)
[2020-03-05] MEDS: METHYLPREDNISOLONE INJ 40 MG/1 ML SDV IV SCH ×3 (10:07→22:08)
[2020-03-05] MEDS: DOCUSATE SODIUM 100 MG CAPSULE PO SCH ×2 (10:10→17:27)
[2020-03-05] MEDS: GUAIFENESIN/D-METHORPHAN (200-20 MG) SYRUP 10 ML PO SCH ×3 (10:10→17:05)
[2020-03-05] MEDS: LEVOFLOXACIN 500 MG TABLET PO SCH (10:10)
[2020-03-05] MEDS: IPRATROPIUM BROMIDE 0.02% NEB 0.5 MG/2.5 ML AMPUL NEB SCH ×2 (10:36→16:02)
[2020-03-05] MEDS: LEVALBUTEROL HCL NEB 1.25 MG/3 ML AMPUL NEB SCH ×2 (10:37→16:02)
[2020-03-05] MEDS: BUDESONIDE NEB 0.5 MG/2 ML AMPUL NEB SCH ×2 (10:37→19:35)
[2020-03-05 11:01] LABS: A TYPE INFLUENZA AG NEGATIVE (NEGATIVE); B INFLUENZA AG NEGATIVE (NEGATIVE)
--- NOTE | 2020-03-05 14:16 | XCELERA REPORT ---
[address] [address] Transthoracic Echocardiogram Report Name: RONALDO CARL Age: 40 yrs Gender: Female : 1980 Patient Status: Inpatient Patient Location: [address] [place] [address] Study Date: 03/05/2020 11:09 AM History: Cough Cardiomeglay Height: 59 in Weight: 127 lb BSA: 1.5 m2 Procedure: A complete two-dimensional transthoracic echocardiogram was performed (2D, M-mode, spectral and color flow Doppler). The study was technically adequate with some images being suboptimal in quality. Reason For Study: cough, elevated bnp, mild cardiomeg (Dr Moon) Previous Evaluation: No previous studies were available. History: Cardiomeglay Cough. Ordering Physician: KEI JOHANSEN Performed By: Daniel Fowler Interpretation Summary Left ventricular systolic function is normal. The Ejection Fraction estimate is 60-65% The right ventricle is normal in size and function. There is severe mitral stenosis Langley gradient across mitral valve is 27 mm Hg at heart rate of 88 bpm. There is a trace amount of tricuspid regurgitation The left atrium is severely dilated. There is no pericardial effusion. MMode/2D Measurements & Calculations RVDd: 2.2 cm LVIDd: 3.6 cm FS: 42.2 % Ao root diam: 2.1 cm IVSd: 0.99 cm LVIDs: 2.1 cm EDV(Teich): 56.1 ml Ao root area: 3.3 cm2 LVPWd: 1.1 cm ESV(Teich): 14.5 ml LA dimension: 4.7 cm EF(Teich): 74.1 % LVOT diam: 1.7 cm LVOT area: 2.2 cm2 Doppler Measurements & Calculations MV E max jermaine: MV V2 max: MV P1/2t max jermaine: Ao V2 max: 250.0 cm/sec 291.7 cm/sec 258.6 cm/sec 169.9 cm/sec MV A max jermaine: MV max PG: MV P1/2t: 98.9 msec Ao max P.7 cm/sec 34.4 mmHg MVA(P1/2t): 2.2 cm2 11.5 mmHg MV E/A: 1.0 MV V2 mean: MV dec slope: HENRIQUE(V,D): 2.0 cm2 224.4 cm/sec MV mean P.7 cm/sec2 22.6 mmHg MV dec time: 0.33 sec MV V2 VTI: 88.5 cm MVA(VTI): 0.63 cm2 LV V1 max PG: SV(LVOT): 55.5 ml PA V2 max: MV P1/2t-pr_phl: 9.6 mmHg 75.6 cm/sec 98.9 msec LV V1 mean PG: PA max P.3 mmHg 4.1 mmHg LV V1 max: 155.0 cm/sec LV V1 mean: 90.6 cm/sec LV V1 VTI: 25.5 cm Left Ventricle The left ventricle is grossly normal size. There is mild concentric left ventricular hypertrophy. Left ventricular systolic function is normal. The Ejection Fraction estimate is 60-65%. LV diastolic function could not be adequately assessed due to significant valve regurgitation and/or stenosis. Right Ventricle The right ventricle is normal in size and function. Atria The right atrium is normal. The left atrium is severely dilated. The interatrial septum is intact with no evidence for an atrial septal defect. Mitral Valve Rheumatic mitral stenosis. There is severe mitral stenosis. Langley gradient across mitral valve is 27 mm Hg at heart rate of 88 bpm. There is a mild to moderate amount of mitral regurgitation. Aortic Valve The aortic valve is grossly normal. The aortic valve opens well. There is no aortic valve stenosis. No aortic regurgitation is present. Tricuspid Valve The tricuspid valve is not well visualized, but is grossly normal. There is a trace amount of tricuspid regurgitation. Tricuspid regurgitation jet envelope not well defined to measure RV systolic pressure accurately. Great Vessels The aortic root is normal size. The inferior vena cava appeared normal and decreased > 50% with respiration (RAP 5-10 mmHg). Effusions There is no pericardial effusion. : KEI JOHANSEN Anil
[2020-03-05] MEDS ORDERED: FUROSEMIDE INJ/PF 40 MG/4 ML SDV IV ONE (15:00)
--- NOTE | 2020-03-05 16:57 | EKG REPORT ---
SEVERITY:- BORDERLINE ECG - SINUS RHYTHM PROBABLE LEFT ATRIAL ABNORMALITY ST ELEV, PROBABLE NORMAL EARLY REPOL PATTERN : Confirmed by: Rafi Quiroz MD 05-Mar-2020 16:56:39
--- NOTE | 2020-03-05 18:46 | PDOC CONSULTATION ---
Consultation Consult Date: 03/05/20 Attending physician:: KEI JOHANSEN Provider Consulted: LYNDA LAI Consult reason:: Cardiomegaly, hemoptysis History of Present Illness Admission Date/PCP: 03/05/20 03:16 Patient complains of: Hemoptysis, progressive dyspnea History of Present Illness: RONALDO CARL is a 40 year old female With no significant prior medical problems presents to the hospital with 1 month of progressive exertional dyspnea. This was manifested especially when the patient was going upstairs. There is no report of chest pain, syncope, presyncope or palpitations. There is no report of orthopnea or PND. Yesterday patient had a pronounced attack of coughing and gagging followed by an episode of hemoptysis. Apparently this was not a significant amount although this is been difficult to quantitate. No major hospital stays. No major childhood illnesses. Patient grew up in [facility] and has subsequently moved down to [place]. No travel outside the country is reported. She smokes less than a pack of cigarettes every day. She uses recreational marijuana. Drinks occasionally as well. No other drugs or agents reported. No major surgeries reported to me. There are no familial illnesses reported to me. Past Medical History Cardiac Medical History: Denies: Atrial Fibrillation, Coronary Artery Disease, DVT, Myocardial Infarction, Hyperlipidema, Hypertension, Pulmonary Embolism Pulmonary Medical History: Denies: Asthma, Chronic Obstructive Pulmonary Disease (COPD), Pneumonia EENT Medical History: Denies: Cataracts, Ears - Hearing aids Neurological Medical History: Denies: Migraine, Multiple Sclerosis, Seizures Endocrine Medical History: Denies: Diabetes Mellitus Type 1, Diabetes Mellitus Type 2, Hyperthyroidism, Hypothyroidism, Obesity Renal/ Medical History: Denies: Chronic Kidney Disease, Nephrolithiasis Malignancy Medical History: Reports: None GI Medical History: Denies: Cirrhosis, Crohn's Disease, Gastroesophageal Reflux Disease, Hepatitis, Peptic Ulcer Disease, Ulcerative Colitis Musculoskeltal Medical History: Denies: Arthritis, Gout Skin Medical History: Denies: Eczema, Psoriasis Psychiatric Medical History: Reports: Tobacco Dependency Denies: Alcohol Dependency, Depression, Substance Abuse Traumatic Medical History: Reports: None Hematology: Reports: Anemia Denies: Bleeding Tendencies Infectious Medical History: Reports: None Past Surgical History Past Surgical History: Reports: Section - x3, Tubal Ligation Social History Lives with: Family, Spouse/Significant other Smoking Status: Current Every Day Smoker Cigarettes Packs Per Day: 1.5 Electronic Cigarette use?: No Frequency of Alcohol Use: Occasional Hx Recreational Drug Use: No Drugs: None Hx Prescription Drug Abuse: No - Advance Directive Resuscitation Status: Full Code Family History Family History: CAD, DM, Hypertension, Malignancy Parental Family History Reviewed: Yes - No familial illnesses Children Family History Reviewed: NA Sibling(s) Family History Reviewed.: NA Medication/Allergy Home Medications: No Home Medications 03/05/20 Allergies/Adverse Reactions: No Known Allergies Allergy (Verified 04/28/19 15:24) Review of Systems Constitutional: ABSENT: as per HPI, anorexia, chills, fatigue, fever(s), headache(s), night sweats, weakness, weight gain, weight loss, other Cardiovascular: PRESENT: dyspnea on exertion Respiratory: PRESENT: cough, hemoptysis Neurological: ABSENT: as per HPI, abnormal gait, abnormal movements, abnormal speech, confusion, convulsions, dizziness, focal weakness, frequent falls, lack of coordination, memory loss, numbness, paresthesias, restless legs, syncope, tingling, tremor(s), vertigo, weakness, other Physical Exam Vital Signs: Temp Pulse Resp BP Pulse Ox 98.0 F 88 14 131/82 H 100 03/05/20 15:25 03/05/20 16:00 03/05/20 16:00 03/05/20 15:25 03/05/20 15:25 Intake & Output 03/04/20 03/05/20 03/06/20 06:59 06:59 06:59 Intake Total 50 240 Balance 50 240 Weight 58 kg General appearance: PRESENT: no acute distress, cooperative, thin Head exam: PRESENT: atraumatic, normocephalic Eye exam: PRESENT: conjunctiva pink, EOMI Ear exam: PRESENT: normal external ear exam Mouth exam: PRESENT: moist Neck exam: PRESENT: JVD Respiratory exam: PRESENT: clear to auscultation felecia, symmetrical, unlabored Cardiovascular exam: PRESENT: diastolic murmur, RRR, +S1, +S2, systolic murmur - Mid diastolic murmur is noted in the apical area. Pansystolic murmur is also noted at the apex. No significant radiation Pulses: PRESENT: normal radial pulses GI/Abdominal exam: PRESENT: soft Rectal exam: PRESENT: deferred Musculoskeletal exam: PRESENT: normal inspection Neurological exam: PRESENT: alert, awake, oriented to person, oriented to place, oriented to time, oriented to situation Psychiatric exam: PRESENT: appropriate affect Skin exam: PRESENT: dry, intact, normal color Results Laboratory Results: 03/04/20 23:33 03/04/20 23:33 03/04/20 03/04/20 03/04/20 23:33 23:33 23:33 WBC 9.3 RBC 3.97 Hgb 10.7 L Hct 32.4 L MCV 82 MCH 26.9 L MCHC 33.0 RDW 18.2 H Plt Count 312 Seg Neutrophils % 66.0 VBG pH VBG pCO2 VBG HCO3 VBG Base Excess Sodium 136.7 L Potassium 4.2 Chloride 108 H Carbon Dioxide 21 L Anion Gap 8 BUN 14 Creatinine 0.81 Est GFR ( Amer) > 60 Glucose 119 H Calcium 8.8 Total Bilirubin 0.4 AST 23 Alkaline Phosphatase 84 Total Protein 7.2 Albumin 4.1 TSH Blood Type O POSITIVE Antibody Screen NEGATIVE 03/04/20 03/05/20 23:33 01:32 WBC RBC Hgb Hct MCV MCH MCHC RDW Plt Count Seg Neutrophils % VBG pH 7.34 VBG pCO2 37.4 VBG HCO3 19.8 L VBG Base Excess -5.4 Sodium Potassium Chloride Carbon Dioxide Anion Gap BUN Creatinine Est GFR ( Amer) Glucose Calcium Total Bilirubin AST Alkaline Phosphatase Total Protein Albumin TSH 3.48 Blood Type Antibody Screen 03/04/20 23:33 NT-Pro-B Natriuret Pep 1090 H EKG Comments: EKG strips available on echocardiogram showed normal sinus rhythm. Echocardiogram images were reviewed and showed the presence of severe calcific rheumatic mitral stenosis. There is mild to moderate mitral regurgitation. LV function appears to be preserved. Left atrium is severely dilated. Impressions: Chest X-Ray 03/04/20 23:51 IMPRESSION: Interstitial changes bibasilar, improved aeration when compared to prior. Status: Imported from PACS Assessment & Plan - Diagnosis (1) Mitral valve stenosis, severe Is this a current diagnosis for this admission?: Yes Plan: Review of echocardiogram shows severe calcific mitral stenosis with mild to moderate mitral regurgitation. Patient has severe left atrial dilatation and is quite symptomatic. 1. Obtain twelve-lead EKG 2. Place the patient on telemetry while in hospital. 3. Metoprolol 12.5 mg p.o. twice daily 4. Furosemide 20 mg daily 5. She will need transesophageal echocardiogram which can be arranged as an outpatient. 6. She will need left heart as well as right heart catheterization as part of work-up for possible valve surgery. I had a detailed discussion with the patient during which I discussed the newly diagnosed problem of severe mitral stenosis. Have explained to the patient that she will need additional work-up which includes transesophageal echocardiogram as well as left and right heart catheterization. There is a possibility that the patient will also need pulmonary evaluation especially if she continues to have hemoptysis as this could have implications for systemic heparinization which will be required at the time of valve surgery. Given restrictions on elective procedures during the ongoing viral pandemic I am optimistic that these above procedures can be arranged with pain in the neck. Have discussed the case with CT surgeon Dr. Saleh at [place]. (2) Tobacco use disorder, severe, dependence Is this a current diagnosis for this admission?: Yes Plan: Ongoing tobacco abuse. She was aggressively counseled regarding cessation of cigarette smoking given indications for surgery and recuperation
[2020-03-06] MEDS: IPRATROPIUM BROMIDE 0.02% NEB 0.5 MG/2.5 ML AMPUL NEB SCH ×2 (00:39→08:01)
[2020-03-06] MEDS: LEVALBUTEROL HCL NEB 1.25 MG/3 ML AMPUL NEB SCH ×2 (00:39→08:01)
[2020-03-06 05:53] LABS: HEMATOCRIT 34.2 % (36.0-47.0); HEMOGLOBIN 11.2 g/dL (12.0-15.5); MEAN CORPUSCULAR HEMOGLOBIN 26.1 pg (27.0-33.4); MEAN CORPUSCULAR HGB CONC 32.8 g/dL (32.0-36.0); MEAN CORPUSCULAR VOLUME 80 fl (80-97); PLATELET COUNT 299 10^3/uL (150-450); RED CELL DISTRIBUTION WIDTH 18.1 % (11.5-14.0)
[2020-03-06 06:14] LABS: ANION GAP 7 (5-19); BLOOD UREA NITROGEN 20 mg/dL (7-20); CALCIUM 9.8 mg/dL (8.4-10.2); CARBON DIOXIDE 25 mmol/L (22-30); CHLORIDE 102 mmol/L (98-107); GLUCOSE 140 mg/dL (75-110); POTASSIUM 4.5 mmol/L (3.6-5.0)
[2020-03-06] MEDS: BUDESONIDE NEB 0.5 MG/2 ML AMPUL NEB SCH (08:01)
[2020-03-06 08:09] VITALS: BP 106/60
[2020-03-06] MEDS: DOCUSATE SODIUM 100 MG CAPSULE PO SCH (09:37)
[2020-03-06] MEDS: LEVOFLOXACIN 500 MG TABLET PO SCH (09:37)
[2020-03-06] MEDS: PANTOPRAZOLE SODIUM 40 MG VIAL IV SCH (09:37)
[2020-03-06] MEDS: GUAIFENESIN/D-METHORPHAN (200-20 MG) SYRUP 10 ML PO SCH (09:38)
[2020-03-06] MEDS ORDERED: METOPROLOL SUCCINATE 25 MG TAB.SR.24H PO SCH (10:00)
[2020-03-06] MEDS ORDERED: FUROSEMIDE 40 MG TABLET PO SCH ×2 (10:00)
[2020-03-06] MEDS ORDERED: FUROSEMIDE 20 MG TABLET PO SCH (10:00)
--- NOTE | 2020-03-06 10:42 | PDOC DISCHARGE SUMMARY ---
Impression - Admit/DC Date/PCP Admission Date/Primary Care Provider: 03/05/20 03:16 Discharge Date: 03/06/20 - Discharge Diagnosis (1) Mitral valve stenosis, severe Is this a current diagnosis for this admission?: Yes (2) Acute bronchitis Is this a current diagnosis for this admission?: Yes (3) Hemoptysis Is this a current diagnosis for this admission?: Yes (4) Chronic anemia Is this a current diagnosis for this admission?: Yes (5) Tobacco use disorder, severe, dependence Is this a current diagnosis for this admission?: Yes - Additional Information Resuscitation Status: Full Code Discharge Diet: As Tolerated Discharge Activity: Activity As Tolerated Referrals: [facility] [Outside] LYNDA LAI MD [ACTIVE STAFF] - Prescriptions: Furosemide [Lasix 20 mg Tablet] 20 mg PO DAILY #30 tablet Metoprolol Tartrate [Lopressor 25 mg Tablet] 12.5 mg PO Q12 #30 tab Home Medications: Albuterol Sulfate [Ventolin Hfa 8 gm Mdi (1 Mdi/ER Disp)] 2 puff IH QIDP PRN #1 inhaler 03/06/20 Furosemide [Lasix 20 mg Tablet] 20 mg PO DAILY #30 tablet 03/06/20 Guaifenesin/D-Methorphan Hb [Robitussin-Dm Syrup 10 ml Udcup] 10 ml PO TIDP PRN syrup 03/06/20 Metoprolol Tartrate [Lopressor 25 mg Tablet] 12.5 mg PO Q12 #30 tab 03/06/20 History of Present Illiness History of Present Illness: According to admitting provider: RONALDO CARL is a 40 year old female who presented the emergency room with acute dyspnea. She admits the sudden onset of moderate dyspnea with an associated paroxysmal cough and accompanied by wheezing on the afternoon of 03/04/2020. Her cough was severe enough to cause gagging which resulted in an emesis of a bright red blood clot. She admits subsequent small emeses of blood-tinged liquid. She denies other associated or accompanying signs and symptoms. She admits smoking 1-1/2 packs of cigarettes per day but insists that she felt well until the sudden onset of symptoms yesterday afternoon. She denies prior similar episodes. She has not identified any aggravating or ameliorating factors for her dyspnea or hematemesis. In the emergency room she was found to have a blood-tinged emesis and her hemoglobin was noted to be essentially unchanged from a result obtained in 2019. She was noted to have an elevated BNP of 1049 and a prominent cardiac silhouette on portable chest x-ray. She was subsequently admitted to observation status for further evaluation and treatment. Hospital Course Hospital Course: Patient was admitted for evaluation of wheezing noted on admission, cough and hemoptysis. Chest x-ray revealed some mild interstitial changes with prominence of cardiac silhouette and elevated BNP. Patient however showed no other signs of overt fluid overload. Patient was admitted with possible suspicion of underlying COPD however this has not been diagnosed via PFTs. Patient does have a [id number] smoking history but no history of COPD. Patient was placed on inhalers and given several doses of steroids. Patient's hemoptysis was qu antified and patient has had no hemoptysis in the past 24 hours whatsoever. Patient was further evaluated via echocardiogram which revealed severe mitral valve stenosis with mild to moderate mitral regurgitation. Patient was seen by cardiology who recommends that patient will need further outpatient follow-up for preoperative work-up for mitral valve replacement/repair. Patient has been set up to follow-up with Dr. Lai who has also discussed cases with outside specialist and a plan has been made to perform a GIACOMO at that time and likely a left and right heart catheterization prior to surgery. However patient has been cleared for discharge at this time as her vitals have remained stable. Patient's initial cough with hemoptysis likely due to acute bronchitis with reactive bronchospasms or patient severe mitral valve stenosis. I do not believe patient truly had hematemesis and likely simply hemoptysis. Patient states her cough is pretty much almost resolved. She will be given inhaler to be used as needed as well as OTC cough syrup. She is also started on Lopressor and Lasix. Hemoglobin has remained stable and vitals look good. Safe for discharge at this point with outpatient follow-up. Physical Exam Vital Signs: Temp Pulse Resp BP Pulse Ox 97.6 F 70 18 106/60 98 03/06/20 08:47 03/06/20 08:47 03/06/20 08:47 03/06/20 08:47 03/06/20 08:47 Intake & Output 03/05/20 03/06/20 03/07/20 06:59 06:59 06:59 Intake Total 50 1010 Balance 50 1010 Weight 58 kg 58 kg General appearance: PRESENT: no acute distress, cooperative Respiratory exam: PRESENT: clear to auscultation felecia, unlabored. ABSENT: tachypnea, wheezes Neurological exam: PRESENT: alert, awake, oriented to person, oriented to place, oriented to time Results Laboratory Results: WBC 14.0 10^3/uL (4.0-10.5) H 03/06/20 05:34 RBC 4.30 10^6/uL (3.72-5.28) 03/06/20 05:34 Hgb 11.2 g/dL (12.0-15.5) L 03/06/20 05:34 Hct 34.2 % (36.0-47.0) L 03/06/20 05:34 MCV 80 fl (80-97) 03/06/20 05:34 MCH 26.1 pg (27.0-33.4) L 03/06/20 05:34 MCHC 32.8 g/dL (32.0-36.0) 03/06/20 05:34 RDW 18.1 % (11.5-14.0) H 03/06/20 05:34 Plt Count 299 10^3/uL (150-450) 03/06/20 05:34 Lymph % (Auto) 25.8 % (13-45) 03/04/20 23:33 Lewis % (Auto) 3.5 % (3-13) 03/04/20 23:33 Eos % (Auto) 3.7 % (0-6) 03/04/20 23:33 Baso % (Auto) 1.0 % (0-2) 03/04/20 23:33 Absolute Neuts (auto) 6.1 10^3/uL (1.7-8.2) 03/04/20 23:33 Absolute Lymphs (auto) 2.4 10^3/uL (0.5-4.7) 03/04/20 23:33 Absolute Monos (auto) 0.3 10^3/uL (0.1-1.4) 03/04/20 23:33 Absolute Eos (auto) 0.3 10^3/uL (0.0-0.6) 03/04/20 23:33 Absolute Basos (auto) 0.1 10^3/uL (0.0-0.2) 03/04/20 23:33 Seg Neutrophils % 66.0 % (42-78) 03/04/20 23:33 VBG pH 7.34 (7.30-7.42) 03/05/20 01:32 VBG pCO2 37.4 mmHg (35-63) 03/05/20 01:32 VBG HCO3 19.8 mmol/L (20-32) L 03/05/20 01:32 VBG Base Excess -5.4 mmol/L 03/05/20 01:32 Sodium 134.2 mmol/L (137-145) L 03/06/20 05:34 Potassium 4.5 mmol/L (3.6-5.0) 03/06/20 05:34 Chloride 102 mmol/L (98-107) 03/06/20 05:34 Carbon Dioxide 25 mmol/L (22-30) 03/06/20 05:34 Anion Gap 7 (5-19) 03/06/20 05:34 BUN 20 mg/dL (7-20) 03/06/20 05:34 Creatinine 0.80 mg/dL (0.52-1.25) 03/06/20 05:34 Est GFR ( Amer) > 60 (>60) 03/06/20 05:34 Est GFR (MDRD) Non-Af > 60 (>60) 03/06/20 05:34 Glucose 140 mg/dL (75-110) H 03/06/20 05:34 Calcium 9.8 mg/dL (8.4-10.2) 03/06/20 05:34 Magnesium 2.2 mg/dL (1.6-2.3) 03/06/20 05:34 Total Bilirubin 0.4 mg/dL (0.2-1.3) 03/04/20 23:33 Direct Bilirubin 0.0 mg/dL (0.0-0.4) 03/04/20 23:33 Neonat Total Bilirubin Not Reportable 03/04/20 23:33 Neonat Direct Bilirubin Not Reportable 03/04/20 23:33 Neonat Indirect Bili Not Reportable 03/04/20 23:33 AST 23 U/L (14-36) 03/04/20 23:33 ALT 16 U/L (<35) 03/04/20 23:33 Alkaline Phosphatase 84 U/L (38-126) 03/04/20 23:33 NT-Pro-B Natriuret Pep 1090 pg/mL (<125) H 03/04/20 23:33 Total Protein 7.2 g/dL (6.3-8.2) 03/04/20 23:33 Albumin 4.1 g/dL (3.5-5.0) 03/04/20 23:33 TSH 3.48 uIU/mL (0.47-4.68) 03/04/20 23:33 COVID-19 Source Cancelled 03/05/20 03:23 COVID-19 (DOTTIE) Cancelled 03/05/20 03:23 Influenza A (Rapid) NEGATIVE (NEGATIVE) 03/05/20 10:23 Influenza B (Rapid) NEGATIVE (NEGATIVE) 03/05/20 10:23 SARS-CoV-2 (PCR) NEGATIVE (NEGATIVE) 03/05/20 03:23 Blood Type O POSITIVE 03/04/20 23:33 Antibody Screen NEGATIVE 03/04/20 23:33 03/04/20 23:33 NT-Pro-B Natriuret Pep 1090 H Impressions: Chest X-Ray 03/04/20 23:51 IMPRESSION: Interstitial changes bibasilar, improved aeration when compared to prior. Plan Time Spent: Less than 30 Minutes Stroke Is this a Stroke Patient?: No Acute Heart Failure - Is this a Heart Failure Patient?: No
== END 2020-03-06 11:58 | disposition home or self-care (01) ==
LOC: ER 23:20 → EH 03-05 03:16 → INTOOBSV 03-05 03:16 → 4W 03-05 05:43
PROVIDERS: ADMIT Emergency Medicine; ATTEND Internal Medicine
DX: I05.2 Rheumatic mitral stenosis with insufficiency (principal); J20.9 Acute bronchitis, unspecified; R04.2 Hemoptysis; D64.89 Other specified anemias; R79.89 Other specified abnormal findings of blood chemistry; F17.210 Nicotine dependence, cigarettes, uncomplicated; Z79.899 Other long term (current) drug therapy; Z82.49 Family history of ischemic heart disease and other diseases of the circulatory system; Z98.51 Tubal ligation status; Z20.828 Contact with and (suspected) exposure to other viral communicable diseases
CPT/HCPCS: 94640 ×5; 99291; 96375; 96365; 86900; 86901; 36415 ×3; 86850; 83735; 84443; 85025; 85027; 87635; 80048; 80053; 82803; 87804; 83880; 93306; 71045; 93005; 93010; 99406; G0378 ×3; J1940 ×2; J2920; J2930 ×2; J3475; C9113 ×3; J3490 ×5; J2405; J7620 ×2

== ENCOUNTER 2020-04-01 12:36 | Emergency (ER) | payer MEDICAID, SELFPAY ==
--- NOTE | 2020-04-01 13:22 | ER Document Report ---
ED General - General Chief Complaint: Rectal Bleeding Stated Complaint: RECTAL BLEEDING Time Seen by Provider: 04/01/20 12:57 Notes: Patient presents with rectal bleeding. She said she is had a hemorrhoid for about 10 years which intermittently bleeds but this time is bleeding more than usual with clots bright red blood mostly on the toilet paper not in the stool. She says she feels dizzy and lightheaded as well. No shortness of breath. She has a history of recently diagnosed mitral valve disease and is pending an appointment for surgery at [facility]. She is not on a blood thinner. She does take metoprolol and Lasix. She denies abdominal pain discomfort weight changes and diarrhea. TRAVEL OUTSIDE OF THE [place] IN LAST 30 DAYS: No - Related Data Allergies/Adverse Reactions: No Known Allergies Allergy (Verified 04/28/19 15:24) Past Medical History - General Information source: Patient - Social History Smoking Status: Never Smoker Family History: CAD, DM, Hypertension, Malignancy - Past Medical History Cardiac Medical History: Denies: Hx Atrial Fibrillation, Hx Coronary Artery Disease, Hx DVT, Hx Heart Attack, Hx Hypercholesterolemia, Hx Hypertension, Hx Pulmonary Embolism Pulmonary Medical History: Denies: Hx Asthma, Hx COPD, Hx Pneumonia Neurological Medical History: Denies: Hx Migraine, Hx Seizures Endocrine Medical History: Denies: Hx Diabetes Mellitus Type 1, Hx Diabetes Mellitus Type 2, Hx Hyperthyroidism, Hx Hypothyroidism Renal/ Medical History: Denies: Hx Peritoneal Dialysis GI Medical History: Denies: Hx Cirrhosis, Hx Crohn's Disease, Hx Gastroesophageal Reflux Disease, Hx Hepatitis, Hx Ulcerative Colitis Musculoskeletal Medical History: Denies Hx Arthritis, Denies Hx Gout Skin Medical History: Denies Hx Eczema, Denies Hx Psoriasis Psychiatric Medical History: Denies: Hx Depression Infectious Medical History: Denies: Hx Hepatitis Past Surgical History: Reports: Hx Section - x3, Hx Tubal Ligation - Immunizations Hx Diphtheria, Pertussis, Tetanus Vaccination: Yes Review of Systems - Review of Systems Notes: REVIEW OF SYSTEMS GEN: Denies fever, chills, weight loss ENT: Denies sore throat, nasal discharge, ear pain EYES: Denies blurry vision, eye pain, discharge CV: Denies chest pain, palpitations, edema RESP: Denies cough, shortness of breath, wheezing GI: See HPI a MSK: Denies joint pain/swelling, edema, SKIN: Denies rash, skin lesions LYMPH: Denies swollen glands/lymph nodes NEURO: Denies headache, focal weakness or numbness, dizziness PSYCH: Denies depression, suicidal or homicidal ideation PHYSICAL EXAMINATION General: No acute distress, well-nourished Head: Atraumatic, normocephalic ENT: Mouth normal, oropharynx moist, no exudates or tonsillar enlargement Eyes: Conjunctiva normal, pupils equal, lids normal Neck: No JVD, supple, no guarding CVS: Normal rate, regular rhythm, no murmurs Resp: No resp distress, equal and normal breath sounds bilaterally GI: Nondistended, soft, no tenderness to palpation, no rebound or guarding rectal: Nonbleeding hemorrhoid, good tone, scant blood in the vault Ext: No deformities, no edema, normal range of motion in upper and lower ext Back: No CVA or midline TTP Skin: No rash, warm Lymphatic: No lymphadeopathy noted Neuro: Awake, alert. Face symmetric. GCS 15. Physical Exam - Vital signs Vitals: Temp Pulse Resp BP Pulse Ox 98.6 F 100 20 139/76 H 98 04/01/20 12:40 04/01/20 12:40 04/01/20 12:40 04/01/20 12:40 04/01/20 12:40 Course - Re-evaluation Re-evalutation: 04/01/20 17:15 Retrograding, greater than two-point hemoglobin drop. Has heart disease as well. Is symptomatic with dizziness but not require transfusion. Will need GI work-up. No GI tonsillar discussed with Meghana, accepted by hospitalist Meghana for GI consult. - Vital Signs Vital signs: Temp Pulse Resp BP Pulse Ox 98.3 F 80 16 129/73 H 98 04/01/20 16:23 04/01/20 16:23 04/01/20 16:23 04/01/20 16:23 04/01/20 16:23 - Laboratory Result Diagrams: 04/01/20 13:18 04/01/20 13:18 Laboratory results interpreted by me: 04/01/20 04/01/20 13:18 13:18 Hgb 9.8 L Hct 29.6 L MCV 79 L MCH 26.1 L RDW 18.1 H Sodium 134.9 L Chloride 109 H Anion Gap 4 L Discharge - Discharge Clinical Impression: GI bleed Qualifiers: GI bleed type/associated pathology: unspecified gastrointestinal hemorrhage type Qualified Code(s): K92.2 - Gastrointestinal hemorrhage, unspecified Condition: Fair Disposition: [facility]
[2020-04-01 13:28] LABS: ABSOLUTE BASOPHILS # (AUTO) 0.1 10^3/uL (0.0-0.2); ABSOLUTE EOSINOPHILS # (AUTO) 0.2 10^3/uL (0.0-0.6); ABSOLUTE LYMPHOCYTES (AUTO) 1.2 10^3/uL (0.5-4.7); ABSOLUTE MONOCYTES (AUTO) 0.3 10^3/uL (0.1-1.4); ABSOLUTE NEUT (AUTO) 5.8 10^3/uL (1.7-8.2); BASOPHILS % (AUTO) 0.8 % (0-2); EOSINOPHILS % (AUTO) 2.6 % (0-6); HEMATOCRIT 29.6 % (36.0-47.0); HEMOGLOBIN 9.8 g/dL (12.0-15.5); MEAN CORPUSCULAR HEMOGLOBIN 26.1 pg (27.0-33.4); MEAN CORPUSCULAR VOLUME 79 fl (80-97); MONOCYTES % (AUTO) 4.1 % (3-13); PLATELET COUNT 290 10^3/uL (150-450); RED BLOOD COUNT 3.74 10^6/uL (3.72-5.28); RED CELL DISTRIBUTION WIDTH 18.1 % (11.5-14.0); SEGMENTED NEUTROPHILS % (AUTO) 76.5 % (42-78); TOTAL CELLS COUNTED % (AUTO) 100 %; WHITE BLOOD COUNT 7.6 10^3/uL (4.0-10.5)
[2020-04-01 13:46] LABS: ALBUMIN 3.8 g/dL (3.5-5.0); ALKALINE PHOSPHATASE 74 U/L (38-126); ASPARTATE AMINO TRANSFERASE 21 U/L (14-36); BILIRUBIN,TOTAL 0.8 mg/dL (0.2-1.3); BLOOD UREA NITROGEN 12 mg/dL (7-20); CALCIUM 8.9 mg/dL (8.4-10.2); CARBON DIOXIDE 22 mmol/L (22-30); GLUCOSE 97 mg/dL (75-110); POTASSIUM 4.3 mmol/L (3.6-5.0); TOTAL PROTEIN 6.7 g/dL (6.3-8.2)
[2020-04-01 13:54] LABS: CHLORIDE 109 mmol/L (98-107)
[2020-04-01 13:58] LABS: ANION GAP 4 (5-19)
[2020-04-01] MEDS ORDERED: DEXTROSE 5%-NORMAL SALINE 1,000 ML IV ONE (18:32)
[2020-04-01 18:56] LABS: HEMATOCRIT 27.9 % (36.0-47.0); HEMOGLOBIN 9.3 g/dL (12.0-15.5); MEAN CORPUSCULAR HEMOGLOBIN 26.4 pg (27.0-33.4); MEAN CORPUSCULAR HGB CONC 33.3 g/dL (32.0-36.0); MEAN CORPUSCULAR VOLUME 79 fl (80-97); PLATELET COUNT 265 10^3/uL (150-450); RED BLOOD COUNT 3.51 10^6/uL (3.72-5.28); RED CELL DISTRIBUTION WIDTH 17.9 % (11.5-14.0); WHITE BLOOD COUNT 7.4 10^3/uL (4.0-10.5)
[2020-04-01 19:18] LABS: ABSOLUTE LYMPHOCYTES# (MANUAL) 1.2 10^3/uL (0.5-4.7); ABSOLUTE MONOCYTES # (MANUAL) 0.1 10^3/uL (0.1-1.4); BASOPHILS % (MANUAL) 0 % (0-2); EOSINOPHILS % (MANUAL) 4 % (0-6); LYMPHOCYTES % (MANUAL) 16 % (13-45); MONOCYTES % (MANUAL) 2 % (3-13); SEGMENTED NEUTROPHILS % (MAN) 78 % (42-78); TOTAL CELLS COUNTED 100
[2020-04-01 19:19] LABS: ANISOCYTOSIS 1+; PLATELET COMMENT ADEQUATE
--- NOTE | 2020-04-01 20:13 | ER Document Report ---
Doctor's Note Notes: 04/01/20 20:11 I rechecked pt at 812pm. pt stable, sitting in bed with no complaints.
[2020-04-01 20:15] VITALS: BP 143/78
== END 2020-04-01 20:17 | disposition short-term general hospital (02) ==
LOC: ER 12:36
DX: K92.2 Gastrointestinal hemorrhage, unspecified (principal)
CPT/HCPCS: 99285; 96360; 96361; 36415; 85025; 80053; J7042